=== PATIENT | male | born 1955 | race Hispanic/Latino ===

== ENCOUNTER 2019-07-31 12:31 | Outpatient (CLI) | payer BC ==
--- NOTE | 2019-07-31 14:06 | ULT ---
THYROID ULTRASOUND: 07/31/19 INDICATIONS: Thyroid nodule. There are no comparison studies. Both lobes exhibit a homogeneous echotexture. Both lobes are mildly prominent. The right lobe measure s 1.7 x 4.4 x 1.5 cm. Left lobe measures 1.8 x 3.6 x 1.6 cm. There are multiple small nodules seen in both lobes. On the right there is a small cystic nodule in the mid right lobe measuring 5 mm. A tiny hypoechoic n odule in the superior right lobe measuring in the 2 to 3 mm range. A small complex nodule in the infe rior right lobe measuring 4 mm. On the left, there is a cystic nodule in the mid upper left lobe measuring 3 to 6 mm. There are two o ther tiny hypoechoic nodules in the left lobe measuring 2 to 3 mm. IMPRESSION: There are multiple small subcentimeter nodules bilaterally. Recommend follow-up thyroid ultrasound in six months to confirm stability. POS: [facility]
== END 2019-07-31 12:32 | disposition home or self-care (01) ==
LOC: BICULT 12:31
PROVIDERS: ATTEND Internal Medicine Cardiovascular Disease
DX: E04.2 Nontoxic multinodular goiter (principal)
CPT/HCPCS: 76536

== ENCOUNTER 2020-04-06 11:19 | Outpatient (CLI) | payer BC ==
--- NOTE | 2020-04-06 11:38 | RAD ---
XR Shoulder Rt 3 View STANDARD History: Acute pain of right shoulder Comparison: None. Findings: Seen on the lateral radiograph is high concern for nondisplaced fracture through the base o f the coracoid. Normal glenohumeral alignment. Normal alignment of the acromioclavicular joint. Visualized ribs are intact. Impression: Concern for nondisplaced fractures of the coracoid base.
== END 2020-04-06 11:20 | disposition home or self-care (01) ==
LOC: BICRAD 11:19
PROVIDERS: ATTEND Family Medicine
DX: M25.511 Pain in right shoulder (principal)

== ENCOUNTER 2020-10-26 21:01 | Inpatient (IN) | payer BC ==
[2020-10-26 21:39] LABS: Mean Corpuscular Hemoglobin 29.8 pg (27.0-31.0); Mean Corpuscular Volume 87.6 fL (78.0-98.0); Mean Platelet Volume 8.8 fL (7.4-10.4); Platelet Count 194 thou/uL (130-400); RBC Distribution Width 17.3 % (11.5-14.5); Red Blood Cell (RBC) Count 1.68 mill/uL (4.70-6.10); White Blood Cell (WBC) Count 8.7 thou/uL (4.8-10.8)
[2020-10-26] MEDS ORDERED: Pantoprazole 80 MG, Admixture Fee 1 EACH in Sodium Chloride 0.9% 100 ML IVPB SCH (21:45)
[2020-10-26 21:46] LABS: ALT (SGPT) 62 U/L (8-55); AST (SGOT) 35 U/L (5-34); Albumin 3.5 g/dL (3.4-4.8); Alkaline Phosphatase 46 U/L (40-110); Anion Gap 13 mmol/L (10-20); BUN (Urea Nitrogen) 91 mg/dL (8.4-25.7); Bilirubin, Total 0.3 mg/dL (0.2-1.2); Calc. Creatinine Clearance 0 mL/min (70-130); Calcium 8.2 mg/dL (7.8-10.44); Carbon Dioxide 19 mmol/L (23-31); Chloride 112 mmol/L (98-107); Glucose 248 mg/dL (80-115); Lipase 47 U/L (8-78); Magnesium 2.4 mg/dL (1.6-2.6); Potassium 4.7 mmol/L (3.5-5.1); Protein, Total 5.5 g/dL (5.8-8.1); Sodium 139 mmol/L (136-145)
[2020-10-26 22:06] LABS: INR-International Normal Ratio 1.3; PTT 29.5 sec (22.9-36.1); Prothrombin Time 16.1 sec (12.0-14.7)
[2020-10-26] MEDS ORDERED: hydrALAZINE 20 MG/ML VIAL SLOW IVP PRN (22:08)
[2020-10-26 22:09] LABS: #Lymphocytes 0.8 thou/uL (1.20-3.40); #Monocytes 0.5 thou/uL (0.11-0.59); #Neutrophils 7.4 thou/uL (1.40-6.50); %Basophils 0.1 % (0.0-1.0); %Eosinophils 0.2 % (0.0-10.0); %Lymphocytes 8.6 % (21.0-51.0); %Monocytes 5.9 % (0.0-10.0); %Neutrophils 85.2 % (42.0-75.0); Anisocytosis SLIGHT = 6-15 cells (100X) (0-5/hpf); MDiff Complete? YES; Ovalocytes SLIGHT = 2-5 cells (100X) (0-1/hpf); Polychromasia SLIGHT = 2-3 cells (100X) (0-2/hpf)
[2020-10-26] MEDS ORDERED: Ondansetron PF 4 MG/2 ML Vial IVP PRN (22:10)
[2020-10-26 22:14] LABS: CKMB 3.5 ng/mL (0-6.6)
[2020-10-26] MEDS ORDERED: Lactated Ringer's 1,000 ML IV SCH (22:15)
[2020-10-26] MEDS ORDERED: Pantoprazole 80 MG in Sodium Chloride 0.9% 100 ML IVPB SCH (22:15)
[2020-10-26 22:54] LABS: Iron Binding Capacity, Total 235 mcg/dL (261-462)
[2020-10-26 22:55] LABS: Iron 18 ug/dL (65-175)
[2020-10-27 06:11] LABS: Anion Gap 10 mmol/L (10-20); BUN (Urea Nitrogen) 91 mg/dL (8.4-25.7); BUN/Creatinine Ratio 23.64; Calc. Creatinine Clearance 0 mL/min (70-130); Calcium 7.9 mg/dL (7.8-10.44); Carbon Dioxide 20 mmol/L (23-31); Cardiac Risk 3.1 (Less than 4.5); Chloride 115 mmol/L (98-107); Cholesterol 85 mg/dl (< 200 Desired); Glucose 162 mg/dL (80-115); HDL Cholesterol 27 mg/dL (>60 Neg Risk); LDL Cholesterol, Calculated 30 mg/dL; Magnesium 2.4 mg/dL (1.6-2.6); Potassium 4.6 mmol/L (3.5-5.1); Sodium 140 mmol/L (136-145); Triglycerides 139 mg/dL (Less than 150)
[2020-10-27 06:13] LABS: Critical Call Chem Troponin I RESULT DECREASING; Troponin I 5.383 ng/mL (< 0.028)
[2020-10-27 06:18] LABS: #Lymphocytes 1.3 thou/uL (1.20-3.40); #Monocytes 0.8 thou/uL (0.11-0.59); #Neutrophils 5.2 thou/uL (1.40-6.50); %Basophils 0.3 % (0.0-1.0); %Eosinophils 0.6 % (0.0-10.0); %Lymphocytes 17.2 % (21.0-51.0); %Monocytes 11.3 % (0.0-10.0); %Neutrophils 70.6 % (42.0-75.0); Mean Corpuscular HGB CONC 31.6 g/dL (32.0-36.0); Mean Corpuscular Hemoglobin 26.5 pg (27.0-31.0); Mean Corpuscular Volume 83.6 fL (78.0-98.0); Mean Platelet Volume 9.1 fL (7.4-10.4); Platelet Count 174 thou/uL (130-400); RBC Distribution Width 17.5 % (11.5-14.5); Red Blood Cell (RBC) Count 2.62 mill/uL (4.70-6.10); White Blood Cell (WBC) Count 7.4 thou/uL (4.8-10.8)
[2020-10-27] MEDS: Lactated Ringer's 1,000 ML IV SCH ×2 (09:51→19:34)
[2020-10-27] MEDS: Amiodarone 450 MG in Dextrose 5% in Water 250 ML IVPB SCH (10:11)
[2020-10-27 10:18] LABS: Creatinine, Urine 156.45 mg/dL (63-166); Sodium, Urine Less than 20 mmol/L (Not Available)
[2020-10-27] MEDS: Carvedilol 6.25 MG TAB PO SCH (16:46)
[2020-10-28] MEDS: Amiodarone 450 MG in Dextrose 5% in Water 250 ML IVPB SCH ×2 (01:28→17:50)
[2020-10-28] MEDS: Lactated Ringer's 1,000 ML IV SCH ×2 (03:55→15:54)
[2020-10-28 05:18] LABS: #Eosinphils 0.1 thou/uL (0.0-0.7); #Lymphocytes 0.9 thou/uL (1.20-3.40); #Monocytes 0.8 thou/uL (0.11-0.59); #Neutrophils 6.8 thou/uL (1.40-6.50); %Basophils 0.3 % (0.0-1.0); %Eosinophils 1.2 % (0.0-10.0); %Lymphocytes 10.4 % (21.0-51.0); %Monocytes 8.8 % (0.0-10.0); %Neutrophils 79.3 % (42.0-75.0); Hemoglobin 8.9 g/dL (14.0-18.0); Mean Corpuscular HGB CONC 33.8 g/dL (32.0-36.0); Mean Corpuscular Volume 85.8 fL (78.0-98.0); Mean Platelet Volume 9.2 fL (7.4-10.4); Platelet Count 167 thou/uL (130-400); RBC Distribution Width 18.9 % (11.5-14.5); Red Blood Cell (RBC) Count 3.05 mill/uL (4.70-6.10); White Blood Cell (WBC) Count 8.5 thou/uL (4.8-10.8)
[2020-10-28 05:58] LABS: Anion Gap 10 mmol/L (10-20); BUN (Urea Nitrogen) 92 mg/dL (8.4-25.7); Calc. Creatinine Clearance 20 mL/min (70-130); Carbon Dioxide 19 mmol/L (23-31); Chloride 115 mmol/L (98-107); Glucose 117 mg/dL (80-115); Potassium 4.3 mmol/L (3.5-5.1); Sodium 140 mmol/L (136-145)
[2020-10-28 07:50] LABS: SARS-CoV-2 NAA Rapid Test Not Detected (NotDetected)
[2020-10-28] MEDS: Carvedilol 6.25 MG TAB PO SCH ×2 (08:03→17:14)
[2020-10-28] MEDS ORDERED: Lidocaine 1% PF 5 ML VIAL ONE (09:17)
[2020-10-28] MEDS ORDERED: PROPOFOL 200 MG/20 ML VIAL ONE (09:17)
[2020-10-28] MEDS ORDERED: Promethazine HCl 25 MG/ML VIAL IM PRN (09:42)
[2020-10-28] MEDS ORDERED: Ketorolac Tromethamine 30 MG/ML VIAL IVP PRN (09:42)
[2020-10-28] MEDS ORDERED: Promethazine HCl 25 MG/ML VIAL IVPB PRN (09:42)
[2020-10-28] MEDS ORDERED: HYDROmorphone 2 MG/ML VIAL SLOW IVP PRN (09:42)
[2020-10-28] MEDS ORDERED: Ondansetron HCl/PF 4 MG/2 ML Vial IVP PRN (09:42)
[2020-10-28] MEDS: Albumin 25% 25 GM/100 ML BOT IVPB SCH ×2 (15:51→17:15)
[2020-10-28] MEDS ORDERED: GoLYTELY 4,000 ml Bottle PO SCH (17:00)
[2020-10-29] MEDS: Albumin 25% 25 GM/100 ML BOT IVPB SCH ×2 (00:04→08:07)
[2020-10-29 04:37] LABS: Hemoglobin 10.1 g/dL (14.0-18.0); Platelet Count 225 thou/uL (130-400)
[2020-10-29] MEDS: Lactated Ringer's 1,000 ML IV SCH (04:52)
[2020-10-29 05:00] LABS: Anion Gap 17 mmol/L (10-20); BUN (Urea Nitrogen) 72 mg/dL (8.4-25.7); Calc. Creatinine Clearance 23 mL/min (70-130); Calcium 8.8 mg/dL (7.8-10.44); Carbon Dioxide 17 mmol/L (23-31); Chloride 112 mmol/L (98-107); Glucose 155 mg/dL (80-115); Potassium 4.2 mmol/L (3.5-5.1); Sodium 142 mmol/L (136-145)
[2020-10-29] MEDS ORDERED: PHENYLEPHRINE-NS 100 MCG/ML 10 ML SYRINGE ONE (09:00)
[2020-10-29] MEDS ORDERED: Lidocaine 1% PF 5 ML VIAL ONE (09:00)
[2020-10-29] MEDS ORDERED: PROPOFOL 200 MG/20 ML VIAL ONE (09:00)
[2020-10-29] MEDS: Carvedilol 6.25 MG TAB PO SCH ×2 (10:24→17:22)
[2020-10-29] MEDS ORDERED: Ondansetron HCl/PF 4 MG/2 ML Vial IVP PRN (10:30)
[2020-10-29] MEDS ORDERED: Promethazine HCl 25 MG/ML VIAL IM/IV PRN (10:30)
[2020-10-29] MEDS ORDERED: Albumin 25% 25 GM/100 ML BOT IVPB SCH (12:00)
[2020-10-29] MEDS: Bumetanide 1 MG/4 ML VIAL IVP SCH (13:19)
[2020-10-29] MEDS: HumaLOG 300 UNITS/3 ML VIAL SC PRN ×2 (17:24→21:28)
[2020-10-30 04:39] LABS: #Eosinphils 0.1 thou/uL (0.0-0.7); #Lymphocytes 0.6 thou/uL (1.20-3.40); #Neutrophils 9.3 thou/uL (1.40-6.50); %Basophils 0.1 % (0.0-1.0); %Eosinophils 0.7 % (0.0-10.0); %Lymphocytes 5.7 % (21.0-51.0); %Monocytes 8.9 % (0.0-10.0); %Neutrophils 84.7 % (42.0-75.0); Hemoglobin 8.5 g/dL (14.0-18.0); Mean Corpuscular HGB CONC 34.2 g/dL (32.0-36.0); Mean Corpuscular Hemoglobin 29.3 pg (27.0-31.0); Mean Corpuscular Volume 85.7 fL (78.0-98.0); Mean Platelet Volume 8.8 fL (7.4-10.4); Platelet Count 200 thou/uL (130-400); RBC Distribution Width 17.5 % (11.5-14.5); Red Blood Cell (RBC) Count 2.91 mill/uL (4.70-6.10); White Blood Cell (WBC) Count 10.9 thou/uL (4.8-10.8)
[2020-10-30 05:00] LABS: Anion Gap 10 mmol/L (10-20); BUN (Urea Nitrogen) 66 mg/dL (8.4-25.7); Calc. Creatinine Clearance 24 mL/min (70-130); Carbon Dioxide 22 mmol/L (23-31); Chloride 113 mmol/L (98-107); Sodium 141 mmol/L (136-145)
[2020-10-30 05:01] LABS: Calcium 8.5 mg/dL (7.8-10.44); Glucose 132 mg/dL (80-115)
[2020-10-30] MEDS: Bumetanide 1 MG/4 ML VIAL IVP SCH (05:55)
[2020-10-30] MEDS: Carvedilol 6.25 MG TAB PO SCH ×2 (09:04→16:07)
[2020-10-30] MEDS: HumaLOG 300 UNITS/3 ML VIAL SC PRN (11:16)
[2020-10-30] MEDS ORDERED: Iron, Sodium Ferric Gluconate 250 MG in Sodium Chloride 0.9% 250 ML 250 ML IVPB SCH (14:15)
[2020-10-30] MEDS: hydrALAZINE 25 MG TAB PO SCH ×2 (16:07→21:48)
[2020-10-30] MEDS ORDERED: Rosuvastatin 20 MG TAB PO SCH (21:00)
[2020-10-31 05:00] LABS: #Eosinphils 0.2 thou/uL (0.0-0.7); #Lymphocytes 0.8 thou/uL (1.20-3.40); #Monocytes 0.8 thou/uL (0.11-0.59); #Neutrophils 7.2 thou/uL (1.40-6.50); %Basophils 0.2 % (0.0-1.0); %Eosinophils 2.4 % (0.0-10.0); %Lymphocytes 8.3 % (21.0-51.0); %Monocytes 9.1 % (0.0-10.0); Hemoglobin 8.5 g/dL (14.0-18.0); Mean Corpuscular HGB CONC 32.7 g/dL (32.0-36.0); Mean Corpuscular Hemoglobin 28.2 pg (27.0-31.0); Mean Corpuscular Volume 86.1 fL (78.0-98.0); Mean Platelet Volume 8.8 fL (7.4-10.4); Platelet Count 211 thou/uL (130-400); RBC Distribution Width 16.9 % (11.5-14.5)
[2020-10-31 05:16] LABS: Anion Gap 13 mmol/L (10-20); BUN (Urea Nitrogen) 58 mg/dL (8.4-25.7); Calc. Creatinine Clearance 29 mL/min (70-130); Calcium 8.5 mg/dL (7.8-10.44); Carbon Dioxide 22 mmol/L (23-31); Chloride 112 mmol/L (98-107); Glucose 120 mg/dL (80-115); Potassium 3.8 mmol/L (3.5-5.1); Sodium 143 mmol/L (136-145)
[2020-10-31 05:48] VITALS: BMI 26.8
[2020-10-31] MEDS ORDERED: Iron, Sodium Ferric Gluconate 250 MG in Sodium Chloride 0.9% 250 ML 250 ML IVPB SCH (06:00)
[2020-10-31] MEDS ORDERED: Torsemide 20 MG TAB PO SCH (09:00)
[2020-10-31] MEDS ORDERED: Ezetimibe 10 MG TAB PO SCH (09:00)
[2020-10-31] MEDS ORDERED: Bumetanide 1 MG/4 ML VIAL IVP SCH (09:00)
[2020-10-31] MEDS ORDERED: Aspirin 81 mg Enteric Coated Tablet PO SCH (09:00)
[2020-10-31] MEDS: Carvedilol 6.25 MG TAB PO SCH (09:35)
[2020-10-31] MEDS: hydrALAZINE 25 MG TAB PO SCH (09:36)
[2020-10-31] MEDS: HumaLOG 300 UNITS/3 ML VIAL SC PRN (11:13)
[2020-10-31 14:07] VITALS: BP 134/62; TEMP 98.1
== END 2020-10-31 15:40 | disposition home or self-care (01) | DRG 377 ==
LOC: ERS 21:01 → 3SE 22:23 → 2NO 10-27 15:52
PROVIDERS: ADMIT Internal Medicine; ATTEND Internal Medicine
PROC: 30233N1 Transfusion of Nonautologous Red Blood Cells into Peripheral Vein, Percutaneous Approach (ICD-10-PCS; 2020-10-27)
PROC: 0DJ08ZZ Inspection of Upper Intestinal Tract, Via Natural or Artificial Opening Endoscopic (ICD-10-PCS; 2020-10-28)
PROC: 0DBC8ZX Excision of Ileocecal Valve, Via Natural or Artificial Opening Endoscopic, Diagnostic (ICD-10-PCS; principal; 2020-10-29)
DX: K92.1 Melena (principal); I21.A1 Myocardial infarction type 2; Z20.822 Contact with and (suspected) exposure to COVID-19; Z23 Encounter for immunization; J81.0 Acute pulmonary edema; I47.2 Ventricular tachycardia; N17.9 Acute kidney failure, unspecified; D62 Acute posthemorrhagic anemia; N18.4 Chronic kidney disease, stage 4 (severe); I25.5 Ischemic cardiomyopathy; K64.8 Other hemorrhoids; K63.5 Polyp of colon; I25.10 Atherosclerotic heart disease of native coronary artery without angina pectoris; E11.22 Type 2 diabetes mellitus with diabetic chronic kidney disease; E78.5 Hyperlipidemia, unspecified; E11.51 Type 2 diabetes mellitus with diabetic peripheral angiopathy without gangrene; E78.00 Pure hypercholesterolemia, unspecified; I50.9 Heart failure, unspecified; I11.0 Hypertensive heart disease with heart failure; I34.0 Nonrheumatic mitral (valve) insufficiency; D63.1 Anemia in chronic kidney disease; E87.70 Fluid overload, unspecified; Z95.810 Presence of automatic (implantable) cardiac defibrillator; Z95.1 Presence of aortocoronary bypass graft; Z87.891 Personal history of nicotine dependence; Z82.49 Family history of ischemic heart disease and other diseases of the circulatory system; Z79.82 Long term (current) use of aspirin; Z79.4 Long term (current) use of insulin; Z79.899 Other long term (current) drug therapy
CPT/HCPCS: 36415; 36416; 36430; 71045; 80048; 80053; 80061; 80069; 82553; 82570; 83540; 83550; 83690; 83735; 83880; 84300; 84443; 84484; 85014; 85018; 85025; 85049; 85610; 85730; 86850; 86900; 86901; 88305; 90471; 90732; 93005; 93306; 93798; 94760; 96365; 96366; C9113; G0009; J0282; J1815; J2704; J2916; J3490; J7050; J7070; J7120; P9016; P9047; U0002

== ENCOUNTER 2020-12-09 10:07 | Outpatient (CLI) | payer BC | END 2020-12-09 10:08 | disposition home or self-care (01) | LOC: RAD 10:07 | PROVIDERS: ATTEND Internal Medicine | DX: D50.9 Iron deficiency anemia, unspecified (principal) | CPT/HCPCS: 74250 ==

== ENCOUNTER 2021-11-17 08:28 | Day surgery (SDC) | payer BC ==
[2021-11-17] MEDS ORDERED: Acetaminophen 500 MG TAB PO SCH (09:00)
[2021-11-17] MEDS ORDERED: diphenhydrAMINE 25 MG CAP PO SCH (09:00)
[2021-11-17] MEDS ORDERED: diphenhydrAMINE 25 MG CAP ONE (09:48)
[2021-11-17] MEDS ORDERED: Acetaminophen 500 MG TAB ONE (09:48)
[2021-11-17 14:38] VITALS: BP 170/74; TEMP 97.9
[2021-11-17 15:29] LABS: #Eosinphils 0.2 thou/uL (0.0-0.7); #Lymphocytes 0.9 thou/uL (1.20-3.40); #Monocytes 0.5 thou/uL (0.11-0.59); #Neutrophils 4.3 thou/uL (1.40-6.50); %Basophils 0.1 % (0.0-1.0); %Eosinophils 3.5 % (0.0-10.0); %Lymphocytes 14.9 % (21.0-51.0); %Monocytes 8.9 % (0.0-10.0); %Neutrophils 72.7 % (42.0-75.0); Mean Corpuscular HGB CONC 33.1 g/dL (32.0-36.0); Mean Corpuscular Hemoglobin 29.1 pg (27.0-31.0); Mean Corpuscular Volume 87.9 fL (78.0-98.0); Mean Platelet Volume 8.5 fL (7.4-10.4); Platelet Count 168 thou/uL (130-400); RBC Distribution Width 14.9 % (11.5-14.5); Red Blood Cell (RBC) Count 3.09 mill/uL (4.70-6.10); White Blood Cell (WBC) Count 5.9 thou/uL (4.8-10.8)
== END 2021-11-17 15:39 | disposition home or self-care (01) ==
LOC: ONC/OP 08:28
PROVIDERS: ATTEND Internal Medicine Hematology & Oncology
PROC: 30233N1 Transfusion of Nonautologous Red Blood Cells into Peripheral Vein, Percutaneous Approach (ICD-10-PCS; principal; 2021-11-17)
DX: D64.9 Anemia, unspecified (principal); D69.6 Thrombocytopenia, unspecified
CPT/HCPCS: 36430; 85025; 86850; 86900; 86901; P9016

== ENCOUNTER 2021-11-24 09:22 | Day surgery (SDC) | payer BC ==
[2021-11-24] MEDS ORDERED: diphenhydrAMINE 25 MG CAP ONE (10:40)
[2021-11-24] MEDS ORDERED: Acetaminophen 500 MG TAB ONE (10:40)
[2021-11-24 16:58] VITALS: BP 170/78; TEMP 97.6
== END 2021-11-24 16:59 | disposition home or self-care (01) ==
LOC: ONC/OP 09:22
PROVIDERS: ATTEND Internal Medicine Hematology & Oncology
PROC: 30233N1 Transfusion of Nonautologous Red Blood Cells into Peripheral Vein, Percutaneous Approach (ICD-10-PCS; principal; 2021-11-24)
DX: D64.9 Anemia, unspecified (principal); D69.6 Thrombocytopenia, unspecified
CPT/HCPCS: 36430; 86850; 86900; 86901; P9016

== ENCOUNTER → 2021-12-01 | Day surgery (SDC) | payer BC ==
[~2021-12-01] MED LIST: Acetaminophen 500 MG TAB ONE; Acetaminophen 500 MG TAB PO SCH; FLU VACC QS2022-23(65YR UP)/PF 240 MCG/0.7 ML SYRINGE IM ONE; diphenhydrAMINE 25 MG CAP ONE; diphenhydrAMINE 25 MG CAP PO SCH
[2021-12-01 13:04] VITALS: BP 159/74; TEMP 98.5
== END | disposition home or self-care (01) ==
LOC: ONC/OP 08:38
PROVIDERS: ATTEND Internal Medicine Hematology & Oncology
PROC: 30233N1 Transfusion of Nonautologous Red Blood Cells into Peripheral Vein, Percutaneous Approach (ICD-10-PCS; principal; 2021-12-01)
DX: D64.9 Anemia, unspecified (principal); D69.6 Thrombocytopenia, unspecified
CPT/HCPCS: 36430; 86850; 86900; 86901; P9016

== ENCOUNTER 2021-12-08 08:50 | Day surgery (SDC) | payer BC ==
[2021-12-08] MEDS ORDERED: Acetaminophen 500 MG TAB PO SCH (09:30)
[2021-12-08] MEDS ORDERED: diphenhydrAMINE 25 MG CAP PO SCH (09:30)
[2021-12-08] MEDS ORDERED: Acetaminophen 500 MG TAB ONE (09:35)
[2021-12-08] MEDS ORDERED: diphenhydrAMINE 25 MG CAP ONE (09:36)
[2021-12-08 17:07] VITALS: BP 158/69; TEMP 97.7
== END 2021-12-08 17:07 | disposition home or self-care (01) ==
LOC: ONC/OP 08:50
PROVIDERS: ATTEND Internal Medicine Hematology & Oncology
DX: D64.9 Anemia, unspecified (principal); D69.6 Thrombocytopenia, unspecified; R06.02 Shortness of breath
CPT/HCPCS: 36430; 86850; 86900; 86901; P9016

== ENCOUNTER 2021-12-14 08:25 | Day surgery (SDC) | payer BC ==
[2021-12-14] MEDS ORDERED: diphenhydrAMINE 25 MG CAP PO SCH (08:30)
[2021-12-14] MEDS ORDERED: Acetaminophen 500 MG TAB PO SCH (08:30)
[2021-12-14] MEDS ORDERED: Acetaminophen 500 MG TAB ONE (09:13)
[2021-12-14] MEDS ORDERED: diphenhydrAMINE 25 MG CAP ONE (09:14)
[2021-12-14 14:28] VITALS: TEMP 97.9
[2021-12-14 14:32] VITALS: BP 123/59
== END 2021-12-14 14:32 | disposition home or self-care (01) ==
LOC: ONC/OP 08:25
PROVIDERS: ATTEND Internal Medicine Hematology & Oncology
PROC: 30233N1 Transfusion of Nonautologous Red Blood Cells into Peripheral Vein, Percutaneous Approach (ICD-10-PCS; principal; 2021-12-14)
DX: D64.9 Anemia, unspecified (principal); D69.6 Thrombocytopenia, unspecified
CPT/HCPCS: 36430; 86850; 86900; 86901; P9016

== ENCOUNTER 2021-12-16 07:02 | Day surgery (SDC) | payer BC ==
[2021-12-15 12:45] VITALS: BMI 28.3
[2021-12-16] MEDS ORDERED: PROPOFOL 40 ML ONE (09:01)
[2021-12-16] MEDS ORDERED: Ketamine 50 MG/ML (10ML VIAL) ONE (09:01)
[2021-12-16] MEDS ORDERED: ePHEDrine 50 MG/ML VIAL ONE (09:36)
== END 2021-12-16 11:12 | disposition home or self-care (01) ==
LOC: SDC 07:02
PROVIDERS: ATTEND Internal Medicine
PROC: 0D5A8ZZ Destruction of Jejunum, Via Natural or Artificial Opening Endoscopic (ICD-10-PCS; principal; 2021-12-16)
PROC: 0D598ZZ Destruction of Duodenum, Via Natural or Artificial Opening Endoscopic (ICD-10-PCS; principal; 2021-12-16)
DX: Q27.33 Arteriovenous malformation of digestive system vessel (principal); D50.0 Iron deficiency anemia secondary to blood loss (chronic); K21.9 Gastro-esophageal reflux disease without esophagitis; I13.0 Hypertensive heart and chronic kidney disease with heart failure and stage 1 through stage 4 chronic kidney disease, or unspecified chronic kidney disease; E11.22 Type 2 diabetes mellitus with diabetic chronic kidney disease; N18.9 Chronic kidney disease, unspecified; I50.9 Heart failure, unspecified; I25.10 Atherosclerotic heart disease of native coronary artery without angina pectoris; I25.2 Old myocardial infarction; E78.00 Pure hypercholesterolemia, unspecified; R63.4 Abnormal weight loss; Z68.28 Body mass index [BMI] 28.0-28.9, adult; Z87.891 Personal history of nicotine dependence; Z79.4 Long term (current) use of insulin; Z79.899 Other long term (current) drug therapy; Z95.1 Presence of aortocoronary bypass graft; Z95.810 Presence of automatic (implantable) cardiac defibrillator
CPT/HCPCS: 36416; J2704; J3490